=== PATIENT | male | born 1980 | race Caucasian/White ===

== ENCOUNTER 2020-01-14 13:52 | Outpatient (REF) | payer BC, SELFPAY ==
[2020-01-15 08:57] LABS: Lyme Abs Screen <0.90 index
== END 2020-01-14 13:53 | disposition home or self-care (01) ==
LOC: HO.LAB 13:52
PROVIDERS: PCP Physician Assistant; Visit Provider Internal Medicine
DX: T14.8XXA Other injury of unspecified body region, initial encounter (principal); W57.XXXA Bitten or stung by nonvenomous insect and other nonvenomous arthropods, initial encounter
CPT/HCPCS: 86618

== ENCOUNTER 2021-07-20 13:05 | Outpatient (REF) | payer BC, SELFPAY ==
--- NOTE | ~2021-07-20 | XR_ITS ---
EXAMINATION: XR SHOULDER, LEFT CLINICAL INFORMATION: Pain COMPARISON: None TECHNIQUE: AP external rotation, Grashey, scapular Y, and axillary views of the left shoulder. FINDINGS: Bone alignment is normal. No fracture or dislocation is seen. The glenohumeral joint is normal. There is arthritis at the acromioclavicular joint. Soft tissues are unremarkable. XR/XR shoulder LT min 2V IMPRESSION: Arthritis at the acromioclavicular joint.
--- NOTE | ~2021-07-20 | XR_ITS ---
EXAMINATION: XR CHEST CLINICAL INFORMATION: Chest pain. COMPARISON: Chest radiograph dated from 09/08/2019. TECHNIQUE: 2 views of the chest were obtained. FINDINGS: Normal appearance of the cardiomediastinal silhouette. Minimal interstitial prominence without discrete focal airspace opacities, pleural effusions or pneumothorax. No acute osseous abnormalities. The visualized upper abdomen is within normal limits. XR/XR chest 2V IMPRESSION: Minimal nonspecific interstitial prominence which could be seen with bronchitis, asthma or reactive airways disease. No focal consolidation. No pleural effusions or pneumothorax.
== END 2021-07-20 13:06 | disposition home or self-care (01) ==
LOC: HO.HMGCX 13:05
PROVIDERS: PCP Internal Medicine; Visit Provider Internal Medicine
DX: R07.9 Chest pain, unspecified (principal); M25.512 Pain in left shoulder
CPT/HCPCS: 71046; 73030

== ENCOUNTER → 2021-08-03 08:04 | Outpatient (REF) | payer BC, SELFPAY ==
--- NOTE | 2021-08-03 08:06 | CA_ITS ---
Acquisition Time: 2021-08-03 08:41:42 Total Exercise Time: 00:10:06 Test Indications: CP Medications: Protocol: ANNIKA Max HR: 173 BPM 97% of Pred: 178 BPM Max BP: 162/070 mmHG Max Work Load: 11.8 METS Exercise stress test with exercise 10 min 6 sec of Annika protocol, with mild sob, no chest discomfort, without arrythmia, with normotensive response to exercise, without EKG changes meeting criteria for ischemia. Test reviewed with Dr Gomez Referred By: Karina Wu Overread By: GERALDO ALLISON
== END ==
LOC: HO.CARD 08:04
PROVIDERS: PCP Internal Medicine; Visit Provider Internal Medicine
DX: R07.9 Chest pain, unspecified (principal)
CPT/HCPCS: 93017

== ENCOUNTER 2021-10-18 14:42 | Outpatient (REF) | payer BC, SELFPAY ==
[2021-10-18 17:01] LABS: Hematocrit 43.9 % (42.0-52.0); Hemoglobin 15.4 g/dl (14.0-18.0); Mean Corpuscular HGB Conc 35.1 g/dl (31.0-36.0); Mean Corpuscular Hemoglobin 30.1 pg (27.0-33.0); Mean Corpuscular Volume 85.9 fL (80.0-98.0); Mean Platelet Volume 10.2 fL (9.4-12.4); Platelet Count 181 X10*3/uL (160-400); Red Blood Count 5.11 X10*6/uL (4.60-5.80); Red Cell Distribution Width 12.1 % (11.0-16.0); White Blood Count 5.9 X10*3/uL (4.8-10.8)
[2021-10-18 17:14] LABS: Appearance Urine Clear; Color Urine Yellow; Glucose Urine UA Negative (Negative); Leukocyte Esterase Urine Negative (Negative); Nitrite Urine Negative (Negative); Specific Gravity - Urine 1.015 (1.005-1.025); Urine Blood Negative (Negative); Urine Ketones Negative (Negative); Urine Protein Negative (Neg-Trace)
[2021-10-18 17:22] LABS: Alanine Aminotransferase 45 U/L (0-40); Albumin Level 4.9 g/dL (3.5-5.0); Alkaline Phosphatase 63 U/L (39-117); Anion Gap 15 (12-20); Aspartate Amino Transferase 32 U/L (5-37); Bilirubin Total 0.9 mg/dL (0.0-1.0); Blood Urea Nitrogen 14 mg/dL (9-16); Calcium 9.8 mg/dL (8.4-10.2); Carbon Dioxide 24 mmol/L (22-29); Chloride 104 mmol/L (96-108); Cholesterol 264 mg/dL; Estimated Glomerular Filt Rate > 60; Glucose Fasting 97 mg/dL (60-99); HDL Cholesterol 52 mg/dL; LDL Cholesterol Calculated 162 mg/dl; Potassium 4.2 mmol/L (3.3-5.1); Sodium 139 mmol/L (135-145); Total Protein 7.4 g/dL (6.5-8.0); Triglycerides 251 mg/dL
[2021-10-18 17:23] LABS: Hyaline Casts Urine 0-2 /LPF (0-2)
[2021-10-18 17:24] LABS: Bacteria Urine None Seen (None Seen); RBC Urine 0-2 /HPF (0-2); Squamous Epithelial Cell Urine 0-2 /HPF (0-2); WBC Urine 0-5 /HPF (0-5)
== END 2021-10-18 14:43 | disposition home or self-care (01) ==
LOC: HO.HMGCLDS 14:42
PROVIDERS: PCP Internal Medicine; Visit Provider Internal Medicine
DX: Z00.00 Encounter for general adult medical examination without abnormal findings (principal)
CPT/HCPCS: 36415; 80053; 80061; 81001; 85027

== ENCOUNTER 2022-03-12 06:37 | Outpatient (REF) | payer BC, SELFPAY ==
[2022-03-12 11:44] LABS: Cholesterol 280 mg/dL; HDL Cholesterol 39 mg/dL; Triglycerides 670 mg/dL
== END 2022-03-12 06:38 | disposition home or self-care (01) ==
LOC: HO.HMGCLDS 06:37
PROVIDERS: PCP Internal Medicine; Visit Provider Internal Medicine
DX: E78.5 Hyperlipidemia, unspecified (principal)
CPT/HCPCS: 36415; 80061

== ENCOUNTER 2022-09-11 10:54 | Outpatient (REF) | payer BC, SELFPAY ==
[2022-09-11 14:32] LABS: Alanine Aminotransferase 55 U/L (0-40); Albumin Level 4.8 g/dL (3.5-5.0); Alkaline Phosphatase 59 U/L (39-117); Anion Gap 13 (12-20); Aspartate Amino Transferase 37 U/L (5-37); Bilirubin Total 1.1 mg/dL (0.0-1.0); Blood Urea Nitrogen 18 mg/dL (9-16); Calcium 10.4 mg/dL (8.4-10.2); Carbon Dioxide 22 mmol/L (22-29); Chloride 107 mmol/L (96-108); Cholesterol 290 mg/dL; Estimated Glomerular Filt Rate > 60; Glucose Fasting 104 mg/dL (60-99); HDL Cholesterol 49 mg/dL; LDL Cholesterol Calculated 189 mg/dl; Potassium 4.3 mmol/L (3.3-5.1); Sodium 138 mmol/L (135-145); Total Protein 7.5 g/dL (6.5-8.0); Triglycerides 263 mg/dL
[2022-09-11 15:00] LABS: Erythrocyte Sedimentation Rate 5 MM/HR (0-15)
== END 2022-09-11 10:55 | disposition home or self-care (01) ==
LOC: HO.HMGCLDS 10:54
PROVIDERS: PCP Internal Medicine; Visit Provider Internal Medicine
DX: E78.5 Hyperlipidemia, unspecified (principal)
CPT/HCPCS: 36415; 80053; 80061; 85652; 86140

== ENCOUNTER 2022-09-13 10:12 | Outpatient (AMB) | payer BC, SELFPAY ==
[2022-09-13 10:16] VITALS: BP 124/80; PULSE 60; O2SAT 97; BMI 34.1
--- NOTE | 2022-09-13 10:16 | A.OFFPC_ITS ---
Vital Signs 09/13/22 10:16 Height 5 ft 10 in Weight 238 lb BMI 34.1 BP 124/80 Blood Pressure Location Lt brachial Position Sitting Pulse 60 Pulse Source Pulse Oximeter Pulse Oximetry (%) 97 Oxygen Delivery Method Room Air Intake Visit Reasons: 4M Follow up Hyperlipidemia Intake Note: Pt is here today for 4 months follow up visit. Allergies No Known Allergies [No Known Allergies*] Allergy (Verified 09/13/22 10:19) Medication List - Last Reconciled 09/13/22 by Karina Wu MD sertraline 50 mg PO DAILY Tobacco use date assessed: 03/13/22 Dental Screening Dental Screen Date: 09/13/22 Did you have a dental visit in the last 12 months?: Yes Did you have a dental problem in the last 6 months where you did not have access to dental care?: No Was dental information given to patient?: Patient has dentist HPI 4M Follow up Hyperlipidemia HPI Details Pt presents for f/u hyperlipid. Pt has been following low cholesterol diet. Patient complains of persistent left shoulder pain worse when reaching overhead. 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 Patient also reports intermittent right shoulder pain when using it. Patient reports witnessed sleep apnea and was diagnosed with obstructive sleep apnea 20 years ago. [facility] Medical History (Updated 09/13/22 @ 11:15 by Karina Wu MD) Achilles tendon pain Annual physical exam Chest pain Former tobacco use Shoulder pain, left Surgical History History of Achilles tendon repair History of tonsillectomy Family History (Updated 09/13/22 @ 10:22 by Deepa Dong [facility]) Father No problems noted. Mother No problems noted. 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 How often do you have a drink containing alcohol?: 2-3 times a week 2. How many drinks containing alcohol do you have on a typical day when you are drinking?: 1 or 2 3. How often do you have six or more drinks on one occasion?: Never Total Score: 3 LILIAM-7 AMB Questionnaire LILIAM-7 Date LILIAM - 7 assessed: 03/13/22 Source: Developed by Drs. Sidney Roldan, Rica Verde, Doug Castillo and colleagues, with an educational jorge from [employer]. Review of Systems Const All systems reviewed & are unremarkable except as noted in HPI and below Reports no additional complaints Eyes Reports no additional complaints Card Reports no additional complaints Resp Reports no additional complaints GI Reports no additional complaints Reports no additional complaints Physical exam (Primary Care) Vital Signs: Last Vital Signs Pulse 60 09/13/22 10:16 BP 124/80 09/13/22 10:16 Pulse Ox 97 09/13/22 10:16 Oxygen Delivery Method Room Air 09/13/22 10:16 BMI result Body Mass Index 34.1 Tobacco/Smoking Status: Tobacco use Status Tobacco use date assessed 03/13/22 09/13/22 10:21 Patient Tobacco Use Status Former Tobacco user (09/13/22 10:21 2021) e-Cigarette/Vaping Use Former Use 09/13/22 10:21 Thrive Assessment: Date of Thrive Assessment Date Thrive assessed 03/13/22 09/13/22 10:21 Const General: no acute distress Eyes General: appearance normal, both eyes and all related structures Neck Neck: Yes supple Resp Effort & Inspection: normal respiratory effort Auscultation: clear to auscultation bilaterally Cardio Rhythm: regular rhythm Heart sounds: S1 normal heart sound present and S2 normal heart sound present Extrem Other: Decreased range of motion both shoulders left more than right, anterior tenderness over left shoulder no joint swelling erythema warmth General: Yes no clubbing, cyanosis or edema Assessment and Plan Assessment & Plan (1) Shoulder pain, left: Code(s): M25.512 - Pain in left shoulder Plan: For persistent left shoulder pain patient will be referred to physical therapy an MRI will be obtained to rule out rotator cuff tear (2) Sleep apnea: Code(s): G47.30 - Sleep apnea, unspecified Plan: Schedule sleep study (3) Hyperlipidemia: Code(s): E78.5 - Hyperlipidemia, unspecified Plan: Low-cholesterol diet increase exercise 30 lb weight loss discussed with the patient. He declined taking medications and will return in 6 months with a fasting labs before Orders: Orders MR shoulder LT wo con Today M12.812 - Other specific arthropathies, not elsewhere classified, left shoulder, M75.102 - Unspecified rotator cuff tear or rupture of left shoulder, not specified as traumatic PT Evaluation and Treatment Today M25.512 - Pain in left shoulder XR shoulder RT min 2V Today M25.512 - Pain in left shoulder RT home sleep study Today G47.30 - Sleep apnea, unspecified Comprehensive Winfred. Panel Fast 6 Months E78.5 - Hyperlipidemia, unspecified Lipid Panel 6 Months E78.5 - Hyperlipidemia, unspecified TSH reflex Free T4 6 Months E78.5 - Hyperlipidemia, unspecified Complete Blood Count Auto Diff 6 Months E78.5 - Hyperlipidemia, unspecified UA w Microscopic 6 Months E78.5 - Hyperlipidemia, unspecified Coding Level of Care Code Est Pt Level 4 (72642) Diagnoses Shoulder pain, left M25.512 Sleep apnea G47.30 Hyperlipidemia E78.5
== END 2022-09-13 11:16 | disposition home or self-care (01) ==
PROVIDERS: Visit Provider Internal Medicine
DX: M25.512 Pain in left shoulder (principal); G47.30 Sleep apnea, unspecified; E78.5 Hyperlipidemia, unspecified
CPT/HCPCS: 99214

== ENCOUNTER 2022-09-22 21:24 | Emergency (ER) | payer BC, SELFPAY ==
--- NOTE | ~2022-09-22 | XR_ITS ---
EXAMINATION: XR ANKLE, RIGHT CLINICAL INFORMATION: Pain. COMPARISON: Radiograph left ankle 07/07/2017. TECHNIQUE: AP, lateral, and mortise views of the right ankle. FINDINGS: Chronic appearing fractures of the distal tibial and fibular shafts with osseous bridging and callus formation. No evidence of acutely appearing fracture or subluxation. Small plantar calcaneal spurs. Moderate size joint effusion in the posterior recess of the ankle. XR/XR ankle RT min 3V IMPRESSION: 1. Chronic appearing fractures of the distal tibia and fibula. 2. Moderate size joint effusion in the posterior recess of the ankle.
[2022-09-22 21:51] VITALS: BP 111/73; PULSE 79; RESP 18; TEMP 36.6; O2SAT 98; BMI 34.4
--- NOTE | 2022-09-22 23:07 | ED.GENADULT ---
HPI - General Adult General Chief complaint: Wound/Laceration Stated complaint: R foot laceration Time Seen by Provider: 09/22/22 23:06 Source: patient Mode of arrival: ambulatory Limitations: no limitations History of Present Illness HPI narrative: Patient is a 42 year old assigned male at with a history of anxiety, hyperlipidemia, and sleep apnea presenting to the emergency department today with a cut on his right ankle. [place] and cut his right ankle. Patient denies any head strike or loss of consciousness. Patient denies any dizziness, lightheadedness, abdominal pain, nausea, vomiting, fever, chills, blurry vision, double vision, loss of vision, chest pain, difficulty breathing, shortness of breath, back pain, night sweats, pain with urination, increased urinary frequency, increased urinary urgency, blood in his urine or stool, syncope or a near syncopal episode, bowel incontinence, bladder incontinence, bowel retention, bladder retention, or any other complaints at this time. Onset (ago): hour(s) Location: right and lower extremity Radiation: non-radiation Severity: mild Severity scale (1-10): 3 Quality: aching Pain Consistency: constant Relieving factors: none Exacerbating factors: none Associated symptoms: denies other symptoms Treatments prior to arrival: none Related Data Home Medications Medication Instructions Recorded Confirmed sertraline 50 mg tablet 50 mg PO DAILY 09/13/22 09/13/22 Previous Rx's Medication Instructions Recorded clindamycin HCl 300 mg capsule 300 mg PO TID 7 days #21 caps 09/22/22 Allergies Allergy/AdvReac Type Severity Reaction Status Date / Time No Known Allergies Allergy Verified 09/13/22 10:19 [No Known Allergies*] Review of Systems Constitutional: Constitutional: Reports no additional constitutional complaints, Denies chills, Denies fever(s) and Denies night sweats Eyes: Eyes: Reports no additional eye complaints, Denies blurry vision, Denies change in vision, Denies diplopia, Denies eye discharge, Denies loss of vision and Denies eye pain ENT: Denies dizziness Cardiovascular: Cardiovascular: Reports no additional cardiovascular complaints, Denies chest pain, Denies lightheadedness, Denies Loss of Consciousness and Denies dyspnea Respiratory: Respiratory: Reports no additional respiratory complaints and Denies dyspnea Gastrointestinal: Gastrointestinal: Reports no additional gastrointestinal complaints, Denies abdominal pain, Denies melena, Denies hematochezia, Denies change in bowel habits and Denies change in stool character Genitourinary: Genitourinary: Reports no additional male genitourinary complaints, Denies hematuria, Denies oliguria, Denies difficulty urinating, Denies dysuria, Denies urinary frequency, Denies urinary hesitancy, Denies urinary incontinence and Denies urinary urgency Musculoskeletal: Musculoskeletal: Reports no additional musculoskeletal complaints, Denies numbness and Denies tingling Integumentary/Breasts: Comments: laceration to right ankle Neurologic: Denies dizziness, Denies loss of vision, Denies numbness and Denies tingling Psychiatric: Psychiatric: Reports no additional psychiatric complaints Endocrine: Endocrine: Reports no additional endocrine complaints Hematologic/Lymphatic: Hematologic/Lymphatic: Reports no additional hematologic/lymphatic complaints Allergic/Immunologic: Allergic/Immunologic: Reports no additional allergic/immunologic complaints PMFSH Past Medical History Attestation statement: The following information was validated with the patient. Source: old records reviewed and nursing notes reviewed Medical History Achilles tendon pain Annual physical exam Chest pain Former tobacco use Shoulder pain, left Surgical History History of Achilles tendon repair History of tonsillectomy Family History Family History Father No problems noted. Mother No problems noted. 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 Alcohol intake: current Alcohol intake frequency: a few times a week Patient Tobacco Use Status: Former Tobacco user e-Cigarette/Vaping Use: Former Use Advance Directives: No Advance Directives Information Provided: Yes Current occupational status: employed Cognitive needs: No Hearing needs: No Vision needs: No Physical Exam ED Vital Signs: Vital Signs - 24 hr 09/22/22 21:51 Temperature 97.9 F Pulse Rate 79 Respiratory Rate 18 Blood Pressure 111/73 Pulse Oximetry 98 Oxygen Delivery Method Room Air BMI result Body Mass Index 34.4 Const General: cooperative, no acute distress, alert and awake Nutritional Appearance: well nourished Orientation/consciousness: patient oriented x3 Limitations: no limitations HENMT Head: Yes normal to inspection and Yes atraumatic Ears: hearing grossly normal bilaterally and external ears normal General nose exam: Normal external nose present, no nasal discharge noted and no epistaxis Face and sinus: Yes normal facial exam, No abrasion and No laceration Mouth: Normal oral and palatal mucosa present, no drooling and no muffled voice Eyes General: appearance normal, both eyes and all related structures Periorbital: periorbital findings normal Eyelids: Yes eyelids normal Conjunctivae: conjunctivae normal Pupils: Equal, round and reactive pupils present EOM: EOMs intact bilaterally Neck Neck: Yes normal visual inspection, Yes full ROM and Yes no lymphadenopathy Chest Chest palpation & inspection: normal inspection of the chest Resp Effort & Inspection: normal respiratory effort and able to speak in complete sentences GI Inspection: Yes normal to inspection Skin Other: 1cm laceration to the medial right ankle Neuro General: patient oriented x3 and moves all extremities Cranial nerves: Yes Equal, round and reactive pupils present Cognition (Neuro): normal cognition Motor exam (neuro): 5/5 motor strength present throughout Sensory Exam: Normal double simultaneous stimulation for sensation Coordination: [id number] test normal Extrem General: Yes normal to inspection, Yes full ROM and Yes capillary refill normal Psych Appearance: grossly normal Mental Status: mental status grossly normal Affect: normal affect Attitude: cooperative Thought process: Normal thought process present Thought content: Normal thought content present Insight: Good insight present (Psych) Procedures Laceration Laceration 1: Site: lower extremity Side (If applicable): right Size (cm): 1 Description: linear Depth: simple, single layer Local Anesthetic: lidocaine 1% Amount of anesthesia used (mL): 5 Pre-repair: wound explored, irrigated extensively and deep structures intact Skin layer closed with: other (prolene) Size (cm): 5-0 Number of sutures: 2 Technique: simple, interrupted Medical Decision Making Medical Decision Making MDM Narrative: Patient is a 42 year old assigned male at with a history of anxiety, sleep apnea, and hyperlipidemia presenting to the emergency department today with a right ankle laceration. Patient's physical exam was as noted in the physical exam portion of this chart. Patient's right ankle x-ray showed no acute process. I explained my physical exam findings as well as all test results to the patient. I answered all questions asked by the patient. Patient's laceration was repaired, per procedure note, without incident. Patient's PMS was intact prior to and after suture placement. I stressed the importance of the patient taking his medication as prescribed. I stressed the importance of the patient following up with his primary care provider. I stressed the importance of the patient having his sutures removed in 7-10 days. I stressed the importance of the patient performing daily wound checks, daily dressing changes, and NOT soaking the affected area. I stressed the importance of the patient returning to the emergency department immediately if his symptoms were to worsen or if he were to develop any dizziness, shortness of breath, difficulty breathing, chest pain, blurry vision, loss of vision, nausea, vomiting, abdominal pain, fever, chills, back pain, or any other complaints. Patient verbalized agreement and understanding with this treatment plan and discharge. Differential Diagnosis Differential Diagnoses: The differential diagnosis associated with the presentation includes Laceration Avulsion Abrasion Ankle fracture Independent Interpretation I performed an independent interpretation of an: Plain X-Ray Interpretation: My interpretation is in agreement with the radiologist's impression of this imaging study. EXAMINATION: XR ANKLE, RIGHT CLINICAL INFORMATION: Pain.? COMPARISON: Radiograph left ankle 07/07/2017.? TECHNIQUE: AP, lateral, and mortise views of the right ankle. FINDINGS: Chronic appearing fractures of the distal tibial and fibular shafts with osseous bridging and callus formation. No evidence of acutely appearing fracture or subluxation. Small plantar calcaneal spurs. Moderate size joint effusion in the posterior recess of the ankle.? XR/XR ankle RT min 3V IMPRESSION: 1.? Chronic appearing fractures of the distal tibia and fibula. 2.? Moderate size joint effusion in the posterior recess of the ankle. Dictated By: Peyton Wheat Signed By: Electronically signed by Peyton?Mary Alice 09/22/22 0029 Radiology Impression Discussion of test interpretation with radiology: I have reviewed the radiologist's reading. Prescription Management I considered prescription management with: Antibiotic (patient prescribed antibiotic given the organic nature of his injury) Discharge Plan Discharge Clinical Impression: Laceration of ankle Patient Disposition: Home, Self-Care Instructions: Care For Your Stitches (DC), Laceration (DC) Additional Instructions: Have your sutures removed in 7-10 days. Do NOT soak the affected area. Perform daily wound checks and dressing changes. Take your antibiotics as prescribed. Follow up with your primary care provider. Return to the emergency department immediately if your symptoms worsen or if you develop any dizziness, shortness of breath, difficulty breathing, chest pain, blurry vision, loss of vision, nausea, vomiting, abdominal pain, fever, chills, back pain, or any other complaints. Prescriptions: New clindamycin HCl 300 mg capsule 300 mg PO TID 7 Days Qty: 21 0RF No Action sertraline 50 mg tablet 50 mg PO DAILY Referrals: Karina Wu MD [Primary Care Provider] - Interventions: ED Discharge Assessment Last Done: 09/22/22 23:51 Discharge Date/Time: 09/22/22 23:51 Print Language: Mauritanian
== END 2022-09-22 23:51 | disposition home or self-care (01) ==
PROVIDERS: Emergency Provider Emergency Medicine; PCP Internal Medicine
DX: S91.011A Laceration without foreign body, right ankle, initial encounter (principal); W26.9XXA Contact with unspecified sharp object(s), initial encounter; E78.5 Hyperlipidemia, unspecified; Z87.891 Personal history of nicotine dependence; Y93.01 Activity, walking, marching and hiking; Y92.832 Beach as the place of occurrence of the external cause; Y99.9 Unspecified external cause status; Z79.899 Other long term (current) drug therapy
CPT/HCPCS: 12001; 73610; 99282; 99284